=== PATIENT | female | born 1935 | race Caucasian/White ===

== ENCOUNTER → 2017-01-02 | Outpatient (CLI) | payer BC ==
[~2017-01-02] MED LIST: ASPEC81 PO; BNT20 PO; CALCTAB5 PO; FLAXSEED OIL; OMEG10007 PO; PRLSR20 PO
[2017-01-02 10:21] LABS: THYROID STIMULATING HORMONE 2.46 uIu/ml (0.300-4.500)
[2017-01-02 10:30] LABS: ESTIMATED AVERAGE GLUCOSE 126 mg/dl; HA1C FLAG Normal (Normal)
== END | disposition home or self-care (01) ==
LOC: C.LAB 09:08
PROVIDERS: ATTEND Internal Medicine
DX: E03.9 Hypothyroidism, unspecified (principal); R73.01 Impaired fasting glucose

== ENCOUNTER → 2017-01-15 | Outpatient (CLI) | payer BC ==
--- NOTE | 2017-01-15 15:37 | MAMMOGRAPHY REPORT ---
BILATERAL DIGITAL SCREENING MAMMOGRAM WITH CAD: 01/15/2017 CLINICAL HISTORY: Routine screening. TECHNIQUE: Bilateral CC, MLO and repeat right MLO views were obtained. Current study was also evalua bonilla with a Computer Aided Detection (CAD) system. COMPARISON: Comparison is made to exams dated: 01/12/2016 mammogram, 01/10/2015 mammogram, 01/06/2014 m ammogram, 07/13/2013 mammogram, 01/08/2013 mammogram, and 01/05/2013 mammogram - [facility]. BREAST COMPOSITION: There are scattered areas of fibroglandular density in both breasts. FINDINGS: There are minimal vascular calcifications in the breasts. Scattered and loosely grouped ro und and coarse calcifications are stable in each breast. No new suspicious mass, architectural disto rtion or cluster of microcalcifications is seen. IMPRESSION: ACR BI-RADS CATEGORY 1: NEGATIVE There is no mammographic evidence of malignancy. A 1 year screening mammogram is recommended. The pa tient will receive written notification of the results. Approximately 10% of breast cancers are not detected with mammography. A negative mammographic report should not delay biopsy if a clinically suggestive mass is present. Amrita Mayo M.D. ay/:01/15/2017 14:02:49 Sales And Service Advisor: Edgar Sanchez RT(R)(M), [facility] letter sent: Normal 1/2 BI-RADS Code: ACR BI-RADS Category 1: Negative
== END | disposition home or self-care (01) ==
LOC: C.MAMM 09:07
PROVIDERS: ATTEND Internal Medicine
DX: Z12.31 Encounter for screening mammogram for malignant neoplasm of breast (principal)

== ENCOUNTER → 2017-02-06 | Outpatient (CLI) | payer BC | END | disposition home or self-care (01) | LOC: C.MAMM 11:32 | PROVIDERS: ATTEND Internal Medicine | DX: M85.88 Other specified disorders of bone density and structure, other site (principal) ==

== ENCOUNTER → 2017-03-08 | Outpatient (CLI) | payer BC ==
--- NOTE | 2017-03-08 11:14 | DIAGNOSTIC IMAGING REPORT ---
THYROID ULTRASOUND HISTORY: E07.9 Thyroid disorder complaining of a "lump feeling" when sh COMPARISON: Thyroid ultrasound 12/26/2015. FINDINGS: Right lobe: 6.2 x 1.7 x 1.9 cm. The gland is slightly heterogeneous. No nodules identified. Left lobe: 5.7 x 2.0 x 1.8 cm. The gland is slightly heterogeneous. No nodules identified. Isthmus: 7 mm in thickness. No nodules. IMPRESSION: Mildly enlarged and heterogeneous thyroid gland. No nodules. This is similar to the prior study. Electronically signed by: Jarek Zepeda M.D. 03/08/2017 11:13 AM Dictated Date/Time: 03/08/2017 11:11 AM
== END | disposition home or self-care (01) ==
LOC: C.ULTR 10:47
PROVIDERS: ATTEND Physician Assistant
DX: E07.9 Disorder of thyroid, unspecified (principal)

== ENCOUNTER → 2017-08-02 | Outpatient (CLI) | payer BC ==
[2017-08-02 11:21] LABS: ALBUMIN 3.6 gm/dl (3.4-5.0); ALT/SGPT 26 U/L (12-78); AST/SGOT 21 U/L (15-37); BASO % 0.4 %; BASO ABS # 0.03 K/uL (0-0.2); BLOOD UREA NITROGEN 19 mg/dl (7-18); CARBON DIOXIDE 26 mmol/L (21-32); CREATININE 0.92 mg/dl (0.60-1.20); EOS % 1.2 %; EOS ABS # 0.09 K/uL (0-0.5); GLUCOSE 97 mg/dl (70-99); HEMATOCRIT 40.4 % (37-47); HEMOGLOBIN 13.4 g/dL (12.0-16.0); IG# 0.01 K/uL (0.00-0.02); LYMPH % 39.8 %; LYMPH ABS # 2.88 K/uL (1.2-3.4); MEAN CELL VOLUME 92.9 fL (80-100); MEAN CORPUSCULAR HEMOGLOBIN 30.8 pg (25-34); MEAN CORPUSCULAR HGB CONC 33.2 g/dl (32-36); MEAN PLATELET VOLUME 11.3 fL (7.4-10.4); MONO % 8.7 %; MONO ABS # 0.63 K/uL (0.11-0.59); NEUT % 49.8 %; PLATELET COUNT 236 K/uL (130-400); POTASSIUM 4.1 mmol/L (3.5-5.1); RED CELL DISTRIBUTION WIDTH CV 13.5 % (11.5-14.5); RED CELL DISTRIBUTION WIDTH SD 46.1 fL (36.4-46.3); SODIUM 136 mmol/L (136-145); WHITE BLOOD COUNT 7.24 K/uL (4.8-10.8)
[2017-08-02 11:32] LABS: ALKALINE PHOSPHATASE 98 U/L (45-117); CHOLESTEROL 205 mg/dl (0-200); LDL CHOLESTEROL CALCULATED 108 mg/dl; TOTAL PROTEIN 7.7 gm/dl (6.4-8.2)
[2017-08-02 12:21] LABS: HEMOGLOBIN A1C 5.9 % (4.5-5.6)
== END | disposition home or self-care (01) ==
LOC: C.LAB 09:18
PROVIDERS: ATTEND Internal Medicine
DX: R73.01 Impaired fasting glucose (principal); E03.9 Hypothyroidism, unspecified; M85.80 Other specified disorders of bone density and structure, unspecified site; E78.5 Hyperlipidemia, unspecified

== ENCOUNTER → 2017-09-02 | Outpatient (CLI) | payer BC ==
[~2017-09-02] MED LIST changes: +GADAVIST IV PRN
--- NOTE | 2017-09-02 15:35 | DIAGNOSTIC IMAGING REPORT ---
BRAIN COMBO CLINICAL HISTORY: D32.9 [id number] COMPARISON STUDY: 06/18/2016 TECHNIQUE: Utilizing a 1.5 Sabina magnet and dedicated coil, multiplanar, multiecho imaging of the brain was performed pre and postcontrast administration. IV administration of 8.5 mL of Gadavist contrast was uneventful. FINDINGS: Identical study compared to the prior examination of 06/18/2016. The postoperative changes within the right frontal region remain unchanged. Regions of encephalomalacia have not progressed. Mild chronic small vessel change is unaltered throughout both cerebral hemispheres. Enhancing mass over the left cerebral convexity as well as the enhancement as well as the additional nodule in the right temporal fossa are unchanged in terms of dimensions or configuration. There is no evidence for new or interval process. Ventricular system is midline. IMPRESSION: Identical exam compared to the prior study. The meningiomas as well as postoperative changes as discussed are unchanged. No new or interval process. The above report was generated using voice recognition software. It may contain grammatical, syntax or spelling errors. Electronically signed by: Gabino Navarro M.D. 09/02/2017 3:34 PM Dictated Date/Time: 09/02/2017 3:27 PM
== END | disposition home or self-care (01) ==
LOC: C.MRI 14:13
PROVIDERS: ATTEND Internal Medicine
DX: D32.9 Benign neoplasm of meninges, unspecified (principal)

== ENCOUNTER 2017-11-01 10:12 | Emergency (ER) | payer BC ==
[~2017-11-01] VITALS: Ht 160 cm; Wt 85.0 kg
[~2017-11-01 10:12] MED LIST changes: -GADAVIST IV PRN
[2017-11-01 10:14] VITALS: TEMP 36.7; Ht 160 cm; Wt 85.0 kg
[2017-11-01] MEDS ORDERED: ACETAMINOPHEN 500 MG TAB PO STA (10:44)
[2017-11-01 10:58] LABS: BASO % 0.2 %; BASO ABS # 0.02 K/uL (0-0.2); EOS % 1.9 %; EOS ABS # 0.16 K/uL (0-0.5); HEMATOCRIT 37.8 % (37-47); HEMOGLOBIN 12.6 g/dL (12.0-16.0); IG# 0.02 K/uL (0.00-0.02); LYMPH % 38.1 %; LYMPH ABS # 3.23 K/uL (1.2-3.4); MEAN CELL VOLUME 91.7 fL (80-100); MEAN CORPUSCULAR HEMOGLOBIN 30.6 pg (25-34); MEAN CORPUSCULAR HGB CONC 33.3 g/dl (32-36); MEAN PLATELET VOLUME 10.8 fL (7.4-10.4); MONO ABS # 0.68 K/uL (0.11-0.59); NEUT % 51.6 %; NEUT ABS # 4.36 K/uL (1.4-6.5); PLATELET COUNT 216 K/uL (130-400); RED CELL DISTRIBUTION WIDTH CV 13.7 % (11.5-14.5); RED CELL DISTRIBUTION WIDTH SD 45.7 fL (36.4-46.3); WHITE BLOOD COUNT 8.47 K/uL (4.8-10.8)
--- NOTE | 2017-11-01 10:59 | DIAGNOSTIC IMAGING REPORT ---
CHEST ONE VIEW PORTABLE CLINICAL HISTORY: Left-sided chest pain radiating into left shoulder. COMPARISON STUDY: Chest radiograph June 01, 2015. FINDINGS: Mild elevation/eventration of the right hemidiaphragm is unchanged. There is no pneumothorax or pleural effusion. There is no evidence for pulmonary edema. Cardiomediastinal silhouette is unremarkable. Appearance of the chest is unchanged. IMPRESSION: No acute cardiopulmonary findings. Electronically signed by: Karthik Lopez M.D. 11/01/2017 10:58 AM Dictated Date/Time: 11/01/2017 10:57 AM
[2017-11-01] MEDS ORDERED: [UNRECOGNIZED DRUG - OTHER] PO (11:06)
[2017-11-01] MEDS ORDERED: OMEP20CA9 PO (11:06)
[2017-11-01] MEDS ORDERED: LIFI5DRO OPB (11:09)
[2017-11-01] MEDS ORDERED: CHOL2000 PO (11:09)
[2017-11-01] MEDS ORDERED: ACET-1256 PO (11:10)
[2017-11-01] MEDS ORDERED: MULT60CA PO (11:16)
[2017-11-01 11:20] LABS: ALBUMIN 3.6 gm/dl (3.4-5.0); ALT/SGPT 30 U/L (12-78); AST/SGOT 25 U/L (15-37); BLOOD UREA NITROGEN 16 mg/dl (7-18); CALCIUM 9.5 mg/dl (8.5-10.1); CARBON DIOXIDE 27 mmol/L (21-32); CREATININE 0.89 mg/dl (0.60-1.20); GLUCOSE 110 mg/dl (70-99); LIPASE 264 U/L (73-393); POTASSIUM 4.1 mmol/L (3.5-5.1); SODIUM 140 mmol/L (136-145)
[2017-11-01 11:22] LABS: ALKALINE PHOSPHATASE 96 U/L (45-117); CKMB 2.7 ng/ml (0.5-3.6); TOTAL PROTEIN 7.4 gm/dl (6.4-8.2)
[2017-11-01 11:25] VITALS: O2SAT 95
[2017-11-01] MEDS ORDERED: LEVO50TA6 PO (11:25)
--- NOTE | 2017-11-01 11:37 | DIAGNOSTIC IMAGING REPORT ---
LEFT SHOULDER 3 VIEWS CLINICAL HISTORY: Left shoulder pain. FINDINGS: 3 views of the left shoulder are obtained. No prior studies are available for comparison at the time of dictation. The skeletal structures are osteopenic. No fracture or dislocation is identified. Productive degenerative change is seen at the acromioclavicular joint and along the acromion. The glenohumeral articulation is preserved. The overlying soft tissues are within normal limits. The visualized left upper lobe lung parenchyma appears clear. IMPRESSION: Osteopenia and mild degenerative change as above. No acute bony abnormality is identified. Electronically signed by: Sarath Zamarripa M.D. 11/01/2017 11:36 AM Dictated Date/Time: 11/01/2017 11:34 AM
--- NOTE | 2017-11-01 12:03 | EMERGENCY ROOM VISIT NOTE ---
History Report prepared by Maryibrenita: Waylon Jon Under the Supervision of: Dr. Elijah Jackson M.D. First contact with patient: 10:21 Chief Complaint: CHEST PAIN Stated Complaint: PAIN LEFT SIDE CHEST AND SHOULDER History of Present Illness The patient is a 81 year old female who presents to the Emergency Room with complaints of constant left-sided chest discomfort beginning last night (about eight hours ago). She also complains of pain in her left shoulder. Her pain woke her from sleep last night. The patient states that her shoulder pain is worse that her chest pain. Her pain is not worsened with exertion. She describes her discomfort as a "soreness". The patient notes that she was cleaning cupboards this week and may have strained a muscle. Source of History: patient Onset: Last night Position: chest (left) Quality: other ("soreness") Timing: constant Note: Positive: left shoulder pain. Review of Systems See HPI for pertinent positives & negatives. A total of 10 systems reviewed and were otherwise negative. Past Medical & Surgical Medical Problems: (1) GERD (gastroesophageal reflux disease) (2) IBS (irritable bowel syndrome) Family History No pertinent family history stated. Social History Smoking Status: Never Smoker Marital Status: Current/Historical Medications Scheduled Acetaminophen (Tylenol), 1,000 MG PO UD Aspirin Enteric Coated (Ecotrin Or Generic *), 81 MG PO HS Calcium (Caltrate), 600 MG PO HS Cholecalciferol (Vitamin D3), 1 CAP PO QAM Levothyroxine Sodium (Levothyroxine Sodium), 1 TAB PO QAM Lifitegrast (Xiidra), 1 DROP OPB BID Multiple Vitamins W/ Minerals (Preservision Areds 2), 1 CAP PO BID Omeprazole (Prilosec), 20 MG PO QAM [Eye Fish Oil], 1 TSP PO QAM Allergies Coded Allergies: Indomethacin (Verified Allergy, Unknown, UNKNOWN, 11/01/17) Pseudoephedrine (Verified Allergy, Unknown, UNKNOWN, 11/01/17) Physical Exam Vital Signs Date Time Temp Pulse Resp B/P (MAP) Pulse Ox O2 Delivery O2 Flow Rate FiO2 11/01/17 12:13 63 20 194/106 97 11/01/17 12:08 65 11/01/17 11:25 95 Room Air 11/01/17 11:25 74 16 208/101 95 Room Air 11/01/17 11:25 95 Room Air 11/01/17 10:14 36.7 92 20 207/91 97 Room Air Physical Exam GENERAL: Awake, alert, well-appearing, in no acute distress HENT: Normocephalic, atraumatic. Oropharynx unremarkable. EYES: Normal conjunctiva. Sclera non-icteric. NECK: Supple. No nuchal rigidity. FROM. No JVD. RESPIRATORY: Clear to auscultation. CARDIAC: Regular rate, normal rhythm. Extremities warm and well perfused. Pulses equal. ABDOMEN: Soft, non-distended. No tenderness to palpation. No rebound or guarding. No masses. RECTAL: Deferred. MUSCULOSKELETAL: Chest examination tenderness to the left breast plate. Reproducible left shoulder pain with ROM. The back is symmetrical on inspection without obvious abnormality. There is no CVA tenderness to palpation. No joint edema. LOWER EXTREMITIES: Calves are equal size bilaterally and non-tender. No edema. No discoloration. NEURO: Normal sensorium. No sensory or motor deficits noted. SKIN: No rash or jaundice noted. Medical Decision & Procedures ER Provider Diagnostic Interpretation: Radiology results as stated below per my review and radiologist interpretation: CHEST ONE VIEW PORTABLE FINDINGS: Mild elevation/eventration of the right hemidiaphragm is unchanged. There is no pneumothorax or pleural effusion. There is no evidence for pulmonary edema. Cardiomediastinal silhouette is unremarkable. Appearance of the chest is unchanged. IMPRESSION: No acute cardiopulmonary findings. Electronically signed by: Karthik Lopez M.D. 11/01/2017 10:58 AM LEFT SHOULDER 3 VIEWS FINDINGS: 3 views of the left shoulder are obtained. No prior studies are available for comparison at the time of dictation. The skeletal structures are osteopenic. No fracture or dislocation is identified. Productive degenerative change is seen at the acromioclavicular joint and along the acromion. The glenohumeral articulation is preserved. The overlying soft tissues are within normal limits. The visualized left upper lobe lung parenchyma appears clear. IMPRESSION: Osteopenia and mild degenerative change as above. No acute bony abnormality is identified. Electronically signed by: Sarath Zamarripa M.D. 11/01/2017 11:36 AM Laboratory Results 11/01/17 10:40 Red Blood Count 4.12, Mean Corpuscular Volume 91.7, Mean Corpuscular Hemoglobin 30.6, Mean Corpuscular Hemoglobin Concent 33.3, Mean Platelet Volume 10.8, Neutrophils (%) (Auto) 51.6, Lymphocytes (%) (Auto) 38.1, Monocytes (%) (Auto) 8.0, Eosinophils (%) (Auto) 1.9, Basophils (%) (Auto) 0.2, Neutrophils # (Auto) 4.36, Lymphocytes # (Auto) 3.23, Monocytes # (Auto) 0.68, Eosinophils # (Auto) 0.16, Basophils # (Auto) 0.02 11/01/17 10:40 Test 11/01/17 10:40 11/01/17 10:47 White Blood Count 8.47 K/uL (4.8-10.8) Red Blood Count 4.12 M/uL (4.2-5.4) Hemoglobin 12.6 g/dL (12.0-16.0) Hematocrit 37.8 % (37-47) Mean Corpuscular Volume 91.7 fL (80-100) Mean Corpuscular Hemoglobin 30.6 pg (25-34) Mean Corpuscular Hemoglobin Concent 33.3 g/dl (32-36) Platelet Count 216 K/uL (130-400) Mean Platelet Volume 10.8 fL (7.4-10.4) Neutrophils (%) (Auto) 51.6 % Lymphocytes (%) (Auto) 38.1 % Monocytes (%) (Auto) 8.0 % Eosinophils (%) (Auto) 1.9 % Basophils (%) (Auto) 0.2 % Neutrophils # (Auto) 4.36 K/uL (1.4-6.5) Lymphocytes # (Auto) 3.23 K/uL (1.2-3.4) Monocytes # (Auto) 0.68 K/uL (0.11-0.59) Eosinophils # (Auto) 0.16 K/uL (0-0.5) Basophils # (Auto) 0.02 K/uL (0-0.2) RDW Standard Deviation 45.7 fL (36.4-46.3) RDW Coefficient of Variation 13.7 % (11.5-14.5) Immature Granulocyte % (Auto) 0.2 % Immature Granulocyte # (Auto) 0.02 K/uL (0.00-0.02) D-Dimer 340 ug/L FEU (0-500) Anion Gap 4.0 mmol/L (3-11) Est Creatinine Clear Calc Drug Dose 52.1 ml/min Estimated GFR () 70.9 Estimated GFR (Non- 61.2 BUN/Creatinine Ratio 17.5 (10-20) Calcium Level 9.5 mg/dl (8.5-10.1) Total Bilirubin 0.4 mg/dl (0.2-1) Direct Bilirubin 0.1 mg/dl (0-0.2) Aspartate Amino Transf (AST/SGOT) 25 U/L (15-37) Alanine Aminotransferase (ALT/SGPT) 30 U/L (12-78) Alkaline Phosphatase 96 U/L (45-117) Total Creatine Kinase 250 U/L (26-192) Creatine Kinase MB 2.7 ng/ml (0.5-3.6) Creatine Kinase MB Ratio 1.1 (0-3.0) Troponin I < 0.015 ng/ml (0-0.045) Total Protein 7.4 gm/dl (6.4-8.2) Albumin 3.6 gm/dl (3.4-5.0) Lipase 264 U/L (73-393) Bedside Troponin I < 0.030 ng/ml (0-0.045) Labs reviewed by ED physician. Medications Administered Medications (Trade) Dose Ordered Sig/Reagan Route Start Time Stop Time Status Last Admin Dose Admin Acetaminophen (Tylenol Tab) 1,000 mg NOW STAT PO 11/01/17 10:44 11/01/17 10:45 DC 11/01/17 11:36 1,000 MG ECG Per My Interpretation Indication: chest pain Rate (beats per minute): 84 Rhythm: normal sinus Findings: ST depression (V3, V4), other (Normal axis) Comparison ECG Date: March 20, 2011 Change: no significant change ED Course 1027: Past medical records reviewed. The patient was evaluated in room A4B. A complete history and physical examination was performed. 1044: Ordered Tylenol Tab 1000 mg PO. 1155: Upon reexamination the patient is resting comfortably. I discussed results and treatment plan with the patient. She verbalizes agreement and understanding. The patient is ready for discharge. Medical Decision Differential diagnosis: Etiologies such as cardiac ischemia, aortic dissection, pulmonary embolism, pneumonia, pneumothorax, musculoskeletal, infections, pericarditis, myocarditis , esophageal rupture, gastrointestinal, as well as others were entertained. This is an 81-year-old female who presents emergency department complaining of left-sided chest pain. The pain is easily reproducible on exam and appears to be related to her shoulder. The patient relates she was cleaning yesterday and standing and using the shoulder a great deal. Based on this along with the fact that the pain is reproducible along with the fact the patient has a normal EKG as well as normal troponin I feel that the patient can be safely discharged home. I strongly recommended that the patient follow-up with orthopedics. Patient was in agreement with the treatment plan. Medication Reconcilliation Current Medication List: was personally reviewed by me Blood Pressure Screening Patient's blood pressure: Elevated blood pressure Blood pressure disposition: Referred to PCP Impression Primary Impression: Shoulder pain, left Scribe Attestation The scribe's documentation has been prepared under my direction and personally reviewed by me in its entirety. I confirm that the note above accurately reflects all work, treatment, procedures, and medical decision making performed by me. Departure Information Dispostion Home / Self-Care Referrals Jan Anthony M.D. (PCP) Forms Call Back Authorization, HOME CARE DOCUMENTATION FORM, IMPORTANT VISIT INFORMATION Patient Instructions ED Shoulder Pain RENAY, ALEXUS Lowe and [place], My [facility] Additional Instructions Follow up with Dr Plascencia's office You have been examined and treated today on an emergency basis only. This is not a substitute for, or an effort to provide, complete comprehensive medical care. It is impossible to recognize and treat all injuries or illnesses in a single emergency department visit. It is therefore important that you follow up closely with Dr Anthony. Call as soon as possible for an appointment. Thank you for your time and consideration. I look forward to speaking with you again soon. Please don't hesitate to call us if you have any questions. Problem Qualifiers Primary Impression: Shoulder pain, left Chronicity: acute Qualified Codes: M25.512 - Pain in left shoulder
[2017-11-01 12:13] VITALS: BP 194/106; PULSE 63; O2SAT 97
== END 2017-11-01 12:14 | disposition home or self-care (01) ==
LOC: C.EDB 10:15 → C.EDA 12:14
DX: M25.512 Pain in left shoulder (principal); K21.9 Gastro-esophageal reflux disease without esophagitis; K58.9 Irritable bowel syndrome, unspecified; Z79.82 Long term (current) use of aspirin; Z79.899 Other long term (current) drug therapy; Z88.8 Allergy status to other drugs, medicaments and biological substances

== ENCOUNTER → 2018-02-24 | Outpatient (CLI) | payer BC ==
[~2018-02-24] MED LIST changes: +ACET-1256 PO; -BNT20 PO; +CHOL2000 PO; -FLAXSEED OIL; +LEVO50TA6 PO; +LIFI5DRO OPB; +MULT60CA PO; -OMEG10007 PO; +OMEP20CA9 PO; -PRLSR20 PO; +[UNRECOGNIZED DRUG - OTHER] PO
--- NOTE | 2018-02-24 13:20 | Discharge Instructions ---
Discharge Instructions Procedure Procedure Date: Feb 24, 2018. Reason for visit: Right Mass. Discharge Discharge Date: Feb 24, 2018. Discharge Diagnosis: post 1:00 right breast ultrasound guided core biopsy Instructions Activity Recommendations: Additional Limitations (see below) Return to School/Work: no limitations Recommended Home Diet: No Limitations Provider Instructions: ACTIVITY RECOMMENDATIONS: * No lifting, pushing, pulling or exercising the affected side for three days. RETURN TO SCHOOL/WORK: * You may return to work/school after the procedure, but do not perform any strenuous activities for 24 to 48 hours. MEDICATIONS: * Tylenol (two 325 mg) every four to six hours if needed for mild pain (if not allergic to Tylenol). DIET: * Resume previous diet. SPECIAL CARE INSTRUCTIONS: * Keep biopsy site dry for 24 hours. May shower after 24 hours, but do not soak (bathe) incision. May remove Tegaderm (plastic patch) 24 hours after procedure * Leave the steri-strips on for one week. Allow the steri-strips to fall off by themselves. If not off after one week, you may remove them. You may place a Bandaid crosswise over the strips, if desired. * Apply ice 10 minutes on and 10 minutes off as needed. * Wear a bra at bedtime to sleep more comfortably for 2-3 days. * Your referring physician should have the results after approximately 5 to 7 business days. * Call for unusual bleeding, fever, drainage, etc or if you have any questions call [phone] during normal business hours or after hours call Dr Mayo, . FOLLOW UP VISIT: Follow-up with Referring Physician as scheduled. Allergies Coded Allergies: Indomethacin (Verified Allergy, Unknown, UNKNOWN, 11/01/17) Pseudoephedrine (Verified Allergy, Unknown, UNKNOWN, 11/01/17) Xander Capellan Recommendations: Call your doctor if: * Temperature above 101 degrees * Pain not relieved by pain medicine ordered * There is increased drainage or redness from any incision * You have any unanswered questions or concerns. Your Doctors Instructions noted above were prepared by provider Amrita Mayo. Patient Signature Section: Patient Instructions Signature Page Mica Boy Patient (or Guardian) Signature/Date: I have read and understand the instructions given to me by my caregivers. Caregiver/RN/Doctor Signature/Date: The above-named patient and/or guardian has received patient instructions on this date. + Original Patient Signature Page (only) stays with chart. Please make copy for patient.
--- NOTE | 2018-02-27 15:42 | MAMMOGRAPHY REPORT ---
THIS REPORT HAS BEEN AMENDED. ULTRASOUND GUIDED BIOPSY RIGHT BREAST: 02/24/2018 CLINICAL HISTORY: 82-year-old woman with recent biopsy-proven atypical ductal hyperplasia in a mucoce le-like lesion in the 12:00 right breast, 1 cm from the nipple. She presents for ultrasound-guided co re biopsy of a third visualized mass in the 1:00 right breast on prior diagnostic ultrasound. COMPARISON: Comparison is made to exams dated: 02/10/2018 ultrasound biopsy, 02/10/2018 mammogram, 12/21 mammogram, 01/15/2017 mammogram, 01/12/2016 mammogram, and 01/27/2018 ultrasound - [facility]. PATIENT CONSENT: The procedure, risks and benefits were discussed with the patient and informed conse nt was obtained both verbally and in writing. Specific risks to this procedure include: bleeding, in fection, puncture of adjacent structure, nontarget biopsy, sampling error, pain, metal allergy and me dication reaction. PROCEDURE DESCRIPTION: A time out was performed and the right breast was agreed as the site of biopsy . The skin was prepped and draped in the usual sterile fashion. The predominantly anechoic cystic-nadira earing mass in the 1:00 right breast was chosen as the target for biopsy. Subcutaneous and intraparen chymal 1% buffered lidocaine, with and without epinephrine, was administered as local anesthesia. A s kin incision was made. Through the incision, to samples were taken with a 14 gauge Achieve biopsy de vice. The mass was no longer identified after the second core biopsy sample and therefore a wing-sha ped metallic marker was placed at the biopsy site. Hemostasis was achieved after manual compression. The patient tolerated the procedure well and there was no immediate complication. The samples were s ent to the pathology department in an appropriately labeled container. Postprocedure right CC and MLO tomosynthesis images were obtained. A new wing-shaped biopsy marker c lip is identified in the 1:00 middle one third of the right breast. This third biopsy marker clip al igns with the initial focal asymmetry in question, detected on the screening mammogram from 01/16/2018 . There is a small 1 cm hematoma at the biopsy site. Ribbon and lock-shaped biopsy clips are stable in the 12:00 axis. The lock-shaped clip denotes the site of biopsy proven atypia. IMPRESSION: ULTRASOUND GUIDED BIOPSY Status post ultrasound-guided core biopsy of an anechoic cystic-appearing mass in the 1:00 left breas t. A wing-shaped biopsy marker clip was placed at the site and this clip aligns with the initial kemar mographic mass in question detected on the 01/16/2018 screening mammogram. The patient will receive notification of the biopsy results from her referring physician. Amrita Mayo M.D. ay/:02/24/2018 14:29:02 Attending Technologist: DEVANTE Gomez)(Jessica), [facility] Professional: Amrita Mayo, [facility] AMENDMENT: 02/26/2018 Amrita Mayo M.D. 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 The pathology results are concordant with the imaging appearance and this mass aligned with the mass in question in which t he patient was initially called back from screening mammography. This lesion is denoted by a wing-sh aped biopsy marker clip. It is controversial as to whether all intraductal papillomas without atypical features, such as in th is case, require excisional biopsy. However it should be noted that biopsy of the right 12:00 mass, 1 cm from the nipple yielded atypical ductal hyperplasia. Mucocele like lesion. Since surgical exci pauline is recommended for that lesion, which is denoted by a lock or coiled biopsy marker clip, could c onsider excising both the mucocele-like lesion with atypia and papilloma at the same time (both the w ing and lock-shaped clips).
--- NOTE | 2018-02-27 15:42 | MAMMOGRAPHY REPORT ---
UNILATERAL RIGHT DIGITAL DIAGNOSTIC MAMMOGRAM TOMOSYNTHESIS: 02/24/2018 CLINICAL HISTORY: Status post ultrasound-guided core biopsy of an anechoic cystic-appearing mass in t he 1:00 right breast, thought to correspond with the initial screening mammogram finding. The mass bi opsied in the 12:00 right breast, 1 cm from the nipple yielded atypia and a possible mucinous lesion. Please refer to the report from right breast ultrasound-guided core biopsy performed at the same time for full detail. IMPRESSION: POST PROCEDURE IMAGING FOR MARKER PLACEMENT Please refer to the report from right breast ultrasound-guided core biopsy performed at the same time for full detail. Some breast cancers are not detected with mammography. A negative mammographic report should not yessi y biopsy if a clinically suggestive mass is present. Amrita Mayo M.D. ay/:02/24/2018 13:31:03 [employer] Underwriter: DEVANTE Gomez)(Jessica), [facility] BI-RADS Code: Post Procedure Imaging For Marker Placement
== END | disposition home or self-care (01) ==
LOC: C.MAMM 12:34
PROVIDERS: ATTEND Internal Medicine
DX: N60.91 Unspecified benign mammary dysplasia of right breast (principal); D24.1 Benign neoplasm of right breast

== ENCOUNTER → 2018-03-10 | Outpatient (CLI) | payer BC ==
[~2018-03-10] MED LIST changes: +ASPI-232 PO; +CALC500C70 PO; +DVN/160 PO; +FLAX10007 PO; +HYDR-5688 PO; +OMEG10007 PO
[2018-03-10 10:34] LABS: BASO % 0.4 %; BASO ABS # 0.03 K/uL (0-0.2); EOS % 1.7 %; EOS ABS # 0.14 K/uL (0-0.5); HEMATOCRIT 40.6 % (37-47); HEMOGLOBIN 13.1 g/dL (12.0-16.0); IG# 0.01 K/uL (0.00-0.02); LYMPH % 32.4 %; LYMPH ABS # 2.64 K/uL (1.2-3.4); MEAN CELL VOLUME 94.4 fL (80-100); MEAN CORPUSCULAR HEMOGLOBIN 30.5 pg (25-34); MEAN CORPUSCULAR HGB CONC 32.3 g/dl (32-36); MEAN PLATELET VOLUME 11.1 fL (7.4-10.4); MONO % 10.8 %; MONO ABS # 0.88 K/uL (0.11-0.59); NEUT % 54.6 %; NEUT ABS # 4.44 K/uL (1.4-6.5); PLATELET COUNT 250 K/uL (130-400); RED CELL DISTRIBUTION WIDTH CV 13.8 % (11.5-14.5); RED CELL DISTRIBUTION WIDTH SD 47.4 fL (36.4-46.3); WHITE BLOOD COUNT 8.14 K/uL (4.8-10.8)
[2018-03-10 11:12] LABS: BLOOD UREA NITROGEN 16 mg/dl (7-18); CALCIUM 10.2 mg/dl (8.5-10.1); CARBON DIOXIDE 28 mmol/L (21-32); CREATININE 0.93 mg/dl (0.60-1.20); GLUCOSE 94 mg/dl (70-99); GLUCOSE,FASTING 94 mg/dl (70-99); POTASSIUM 4.3 mmol/L (3.5-5.1); SODIUM 138 mmol/L (136-145)
[2018-03-10 11:31] LABS: HEMOGLOBIN A1C 5.9 % (4.5-5.6)
== END | disposition home or self-care (01) ==
LOC: C.LAB 09:20
PROVIDERS: ATTEND Surgery
DX: Z01.818 Encounter for other preprocedural examination (principal); N60.99 Unspecified benign mammary dysplasia of unspecified breast; D24.9 Benign neoplasm of unspecified breast; R73.01 Impaired fasting glucose; E03.9 Hypothyroidism, unspecified

== ENCOUNTER 2022-03-16 07:21 | Observation (INO) ==
[2022-03-16] MEDS ORDERED: SODIUM CHLORIDE 0.9% 500 ML IV SCH (08:45)
--- NOTE | 2022-03-16 08:48 | Emergency Department Note ---
History of Present Illness General Chief complaint: Weakness Stated complaint: weakness Time Seen by Provider: 03/16/22 08:29 Source: patient and family ( and daughter who are at the bedside) Mode of arrival: ambulatory Limitations: no limitations History of Present Illness This patient is an 86-year-old female who comes in after falling at 5:00 this morning she says "I just went down. She says she just felt weak all over. Was nonfocal but mostly in her legs bilaterally. She said she got up to go to the bathroom. She adamantly denies there was no syncope or symptoms prior to falling just feeling weak. She denies any injury she did not hit her head there is no headache or head trauma. No neck pain she denies that she has pain anywhere. No chest pain in any point or palpitations. no shortness of breath or pleurisy. No recent illness cough or fever or chills. No nausea vomiting or diarrhea. No blood or melena in her stool. No sick contacts. No urinary symptoms specifically no dysuria or hematuria. No difficulty speaking or swallowing. No change in vision acutely. She says her legs feel tingly in her feet but she gets that from time to time. She tells me she does have a history of parathyroid disease and was taken off of medications for this recently. She also has a history of meningiomas that been operated on in the past. Home Medications Medication Instructions Recorded Confirmed Type flaxseed oil See Rx Instructions miscellaneous 12/20/18 01/02/22 Rx ONCE #1 btl aspirin 81 mg tablet 81 mg PO DAILY 04/30/19 02/07/22 History aflibercept 2 mg/0.05 mL intravitreal 05/04/19 02/07/22 History intravitreal solution for injection (Eylea) [place] Three Fish Oil Liquid 2,668 mg PO DAILY 04/06/20 02/07/22 History vit 1 cap PO BID 04/06/20 02/07/22 History C,E,zinc,Ko-wuhrf-4-lutein-zeaxanthin 250 mg-2.5 mg-0.5 mg capsule amlodipine 5 mg tablet 5 mg PO DAILY #90 tabs 04/25/21 02/07/22 Rx omeprazole 20 mg capsule,delayed 20 mg PO DAILY #90 caps 07/03/21 02/07/22 Rx release lisinopril 40 mg tablet 40 mg PO DAILY #90 tabs 09/01/21 02/07/22 Rx levothyroxine 75 mcg tablet 75 mcg PO DAILY #90 tabs 12/29/21 02/07/22 Rx [place] Eye Drops ophthalmic (eye) 01/02/22 02/07/22 History eye lubricant combination no.1 2 drp ophthalmic (eye) 01/02/22 02/07/22 History %-0.9 %-1.8 % drops cholecalciferol (vitamin D3) 50 50 mcg PO DAILY 02/07/22 02/07/22 History mcg (2,000 unit) capsule cinacalcet 30 mg tablet 30 mg PO DAILY #90 tabs 02/07/22 02/07/22 Rx tumeric PO 02/07/22 History vit C 250 mg-E 90 mg-zinc 40 1 tab PO BID 02/07/22 02/07/22 History mg-copper 1 ko-vmfmqn-slpxok chew tablet (PreserVision AREDS-2) Allergies Allergy/AdvReac Type Severity Reaction Status Date / Time indomethacin Allergy Unknown "HEAD FELT Verified 02/07/22 11:12 FUNNY" pseudoephedrine Allergy Unknown "HEAD FELT Verified 02/07/22 11:12 FUNNY" Past Med/Surg History Medical History Gastroesophageal reflux disease Hyperlipidemia Hypertension Hypothyroidism Impaired fasting glucose Macular degeneration Mass of right breast Meningioma Osteopenia Primary hyperparathyroidism Surgical History History of brain surgery S/P breast biopsy, right S/P cataract surgery S/P cholecystectomy S/P hysterectomy S/P tonsillectomy and adenoidectomy Family History Father Diabetes Brother Diabetes Mother Breast cancer Sister Breast cancer Denies family history of Ovarian cancer Prostate cancer Myocardial infarction Colorectal cancer Social History Smoking Status: Never smoker Second Hand Exposure: No; Hx Alcohol Use: No Hx Substance Use: No Preferred Language: Swazi Communication Ability: Effective Visual Impairment: No Limitations Hearing Ability: Use of Hearing Aid Hop Weigher Required: No marital status: Current Living Situation: Spouse current occupational status: retired current occupation: used to work as meat stocker at [employer] Feels Safe at Home: Yes Childhood Exposure to Second-Hand Smoke: No caffeine: Yes during the past year weight has: remained stable Dental Care, Regularly: Yes Physical Activity Frequency: Daily Seatbelt Use: always Sunscreen Use: Yes Assistive Devices: Denture - Upper, Denture - Lower, Glasses and Hearing Aid - Bilateral Review of Systems A total of 10 systems reviewed and were otherwise negative Physical Exam Vital Signs Vital Signs - 24 hr 03/16/22 07:30 03/16/22 07:27 03/16/22 07:27 Temperature 36.6 C Temperature Source Temporal Artery Scan Pulse Rate - Lying Pulse Rate - Sitting Pulse Rate - Standing Pulse Rate 74 Pulse Rate [Apical] 70 Pulse Rhythm Regular Pulse Strength Normal Respiratory Rate 20 16 Respiratory Effort / Characteristics Non-Labored Spontaneous Respiratory Depth Normal Respiratory Pattern Regular Blood Pressure - Lying Blood Pressure - Sitting Blood Pressure- Standing Blood Pressure 199/80 H Blood Pressure [Left Arm] 199/80 H Blood Pressure Mean 119 Blood Pressure Mean [Left Arm] 119 Blood Pressure Position Sitting Pulse Oximetry 98 95 Oxygen Delivery Method Room Air Room Air Sepsis Recent Fever Within 48 Hours No Sepsis New/Unexplained Change in Mental Status No Sepsis Action Taken by Nursing No Action Required 03/16/22 08:40 03/16/22 09:27 03/16/22 11:32 Temperature Temperature Source Pulse Rate - Lying 67 Pulse Rate - Sitting 80 Pulse Rate - Standing 90 Pulse Rate Pulse Rate [Apical] 73 Pulse Rhythm Pulse Strength Respiratory Rate 16 Respiratory Effort / Characteristics Respiratory Depth Respiratory Pattern Blood Pressure - Lying 176/87 H Blood Pressure - Sitting 155/83 H Blood Pressure- Standing 163/81 H Blood Pressure Blood Pressure [Left Arm] 175/89 H Blood Pressure Mean Blood Pressure Mean [Left Arm] 117 Blood Pressure Position Pulse Oximetry 95 99 Oxygen Delivery Method Room Air Sepsis Recent Fever Within 48 Hours Sepsis New/Unexplained Change in Mental Status Sepsis Action Taken by Nursing General: Well developed well nourished older female who appears in no acute distress, breathing comfortably on room air. Normal speech HEENT: Normal cephalic atraumatic. Pupils are equal round and reactive to light. Extraocular movements are intact. Oropharynx is pink with moist mucous membranes. No swelling of the mouth lips or tongue. Neck: Supple with a midline trachea. No meningeal signs or stiffness, no JVD or bruits. No Stridor. Chest: Clear to auscultation bilaterally. No wheezes or rhonchi. No increased work of breathing. Heart: Regular rate and rhythm without murmurs or gallops. Abdomen: Soft nontender, nondistended without rebound guarding or rigidity. Extremities: No cyanosis clubbing or edema. No calf tenderness or assymetry Spine/Back. Non tender to palpation. No CVA tenderness Skin: Good turgor without rashes. Neurologic exam: Cranial nerves two through 12 are intact. Motor and sensation are intact and symmetrical throughout. Finger to ose is intact. No pronator drift. Course Administered Medications Discontinued Medications Sodium Chloride (Nss) 500 mls @ 999 mls/hr IV .Q31M RAVIN Stop: 03/16/22 09:15 Last Infusion: 03/16/22 10:05 Dose: 0 mls/hr Documented By: Admin: 03/16/22 08:53 Dose: 999 mls/hr Documented By: LAQUITA Medical Decision Making Differential Diagnosis Weakness, central neurologic process, arrhythmia, acute coronary syndrome, anemia, infection, UTI, electrolyte or metabolic abnormality Medical Records Attestation: I reviewed the patient's medical records. Home Medications Current Medication List: was personally reviewed by me Laboratory Data Attestation: I reviewed the patient's lab results. Result diagrams: 03/16/22 07:46 03/16/22 07:46 Lab Results 03/16/22 03/16/22 03/16/22 Range/Units 07:46 07:46 07:46 WBC 7.34 (4.8-10.8) K/ul RBC 4.27 (3.93-5.22) M/uL Hgb 12.7 (12.0-16.0) g/dl Hct 39.0 (34.1-44.9) % MCV 91.3 (80.0-100.0) fL MCH 29.7 (25.0-34.0) pg MCHC 32.6 (32.0-36.0) g/dL RDW Std Deviation 46.0 (36.4-46.3) fL RDW Coeff of [place] 13.6 (11.5-14.5) % Plt Count 247 (130-400) K/uL MPV 11.0 (9.4-12.3) fL Immature Gran % (Auto) 0.3 % Neut % (Auto) 56.4 % Lymph % (Auto) 31.9 % [place] % (Auto) 9.1 % Eos % (Auto) 1.8 % Baso % (Auto) 0.5 % Neut # (Auto) 4.14 (1.4-6.5) K/uL Lymph # (Auto) 2.34 (1.2-3.4) K/uL [place] # (Auto) 0.67 (0.24-0.82) K/uL Eos # (Auto) 0.13 (0-0.50) K/uL Baso # (Auto) 0.04 (0-0.2) K/uL Immature Gran # (Auto) 0.02 (0.00-0.02) K/uL Sodium 138 (136-145) mmol/L Potassium 4.2 (3.5-5.1) mmol/L Chloride 107 (98-107) mmol/L Carbon Dioxide 24 (21-32) mmol/L Anion Gap 7 (3-11) BUN 15 (6-23) mg/dl Creatinine 0.88 (0.6-1.2) mg/dl Est Cr Clr Drug Dosing Not Reportable Est GFR ( Amer) 69.4 ml/min Est GFR (Non-Af Amer) 59.9 ml/min BUN/Creatinine Ratio 17.0 (10-20) Glucose 120 H (70-99(Fasting)) mg/dl Calcium 9.9 (8.5-10.1) mg/dl Magnesium 2.1 (1.7-2.4) mg/dl Total Bilirubin 0.6 (0.2-1.0) mg/dl AST 18 (13-39) U/L ALT 13 (7-52) U/L Alkaline Phosphatase 100 (34-104) U/L Troponin I High Sens 8.5 (0-14) pg/ml Total Protein 7.2 (6.0-8.3) gm/dl Albumin 4.0 (3.4-5.0) gm/dl Globulin 3.2 (2.5-4.0) gm/dl Albumin/Globulin Ratio 1.3 (0.9-2) TSH 1.493 (0.300-4.500) uIu/ml Urine Color Urine Appearance (Clear) Urine pH (4.5-7.5) Ur Specific [place] (1.000-1.030) Urine Protein (Negative) Urine Glucose (UA) (Negative) Urine Ketones (Negative) Urine Blood (Negative) Urine Nitrite (Negative) Urine Bilirubin (Negative) Urine Urobilinogen (Negative) Ur Leukocyte Esterase (Negative) Urine WBC (Auto) (0-5) /hpf Urine RBC (Auto) (0-4) /hpf U Hyaline Cast (Auto) (0-5) /lpf U Epithel Cells (Auto) (0-5) /lpf Urine Bacteria (Auto) (Negative) SARS-CoV-2, RNA, NAAT (NEGATIVE) 03/16/22 03/16/22 Range/Units 08:46 08:55 WBC (4.8-10.8) K/ul RBC (3.93-5.22) M/uL Hgb (12.0-16.0) g/dl Hct (34.1-44.9) % MCV (80.0-100.0) fL MCH (25.0-34.0) pg MCHC (32.0-36.0) g/dL RDW Std Deviation (36.4-46.3) fL RDW Coeff of [place] (11.5-14.5) % Plt Count (130-400) K/uL MPV (9.4-12.3) fL Immature Gran % (Auto) % Neut % (Auto) % Lymph % (Auto) % [place] % (Auto) % Eos % (Auto) % Baso % (Auto) % Neut # (Auto) (1.4-6.5) K/uL Lymph # (Auto) (1.2-3.4) K/uL [place] # (Auto) (0.24-0.82) K/uL Eos # (Auto) (0-0.50) K/uL Baso # (Auto) (0-0.2) K/uL Immature Gran # (Auto) (0.00-0.02) K/uL Sodium (136-145) mmol/L Potassium (3.5-5.1) mmol/L Chloride (98-107) mmol/L Carbon Dioxide (21-32) mmol/L Anion Gap (3-11) BUN (6-23) mg/dl Creatinine (0.6-1.2) mg/dl Est Cr Clr Drug Dosing Est GFR ( Amer) ml/min Est GFR (Non-Af Amer) ml/min BUN/Creatinine Ratio (10-20) Glucose (70-99(Fasting)) mg/dl Calcium (8.5-10.1) mg/dl Magnesium (1.7-2.4) mg/dl Total Bilirubin (0.2-1.0) mg/dl AST (13-39) U/L ALT (7-52) U/L Alkaline Phosphatase (34-104) U/L Troponin I High Sens (0-14) pg/ml Total Protein (6.0-8.3) gm/dl Albumin (3.4-5.0) gm/dl Globulin (2.5-4.0) gm/dl Albumin/Globulin Ratio (0.9-2) TSH (0.300-4.500) uIu/ml Urine Color Yellow Urine Appearance Clear (Clear) Urine pH 8.0 H (4.5-7.5) Ur Specific [place] 1.005 (1.000-1.030) Urine Protein Negative (Negative) Urine Glucose (UA) Negative (Negative) Urine Ketones Negative (Negative) Urine Blood Negative (Negative) Urine Nitrite Negative (Negative) Urine Bilirubin Negative (Negative) Urine Urobilinogen Negative (Negative) Ur Leukocyte Esterase 1+ H (Negative) Urine WBC (Auto) 1-5 (0-5) /hpf Urine RBC (Auto) 0-4 (0-4) /hpf U Hyaline Cast (Auto) 0 (0-5) /lpf U Epithel Cells (Auto) 10-20 H (0-5) /lpf Urine Bacteria (Auto) Negative (Negative) SARS-CoV-2, RNA, NAAT NEGATIVE (NEGATIVE) Imaging Data Attestation: I personally reviewed and interpreted this imaging study as follows: My Impression: Chest x-rayno infiltrate, failure, pneumothorax seen Radiologist's Impression: Chest X-Ray 03/16/22 08:40 XR chest 1V portable HISTORY: Chest 11/01/2017. COMPARISON: None. FINDINGS: The cardiac silhouette remains mildly enlarged. Mild bibasilar interstitial thickening remains stable. This is likely chronic. No new focal lung consolidations to suggest pneumonia. No evidence for pulmonary edema. Stable mild elevation the right hemidiaphragm. Prior cholecystectomy. Calcifications within the aortic knob. No pneumothorax. No pleural effusions. IMPRESSION: No significant change compared to the prior study. No acute process. ACT 112: Negative or not required by law. Electronically signed by: Jarek Zepeda M.D. 03/16/2022 9:[address] 03/16/22 08:[address] DOSE: 638.56 mGycm HISTORY: weakness, hx of menigoma TECHNIQUE: Multiaxial CT images of the head were performed without the use of intravenous contrast. Automated exposure control was utilized for this study. A dose lowering technique was utilized adhering to the principles of ALARA. Comparison: Head CT 05/20/2009. Brain MRI 10/31/2018. Findings: Mild mucosal thickening within the left maxillary sinus. The remaining paranasal sinuses and mastoid air cells are clear. No acute calvarial fractures identified. Stable 2 cm left high convexity meningioma. Prior right frontal craniotomy with underlying encephalomalacia. This is also unchanged. There is no hematoma, midline shift, acute infarct. The ventricles are normal in size. Impression: 1. No acute intracranial abnormality. 2. Stable postoperative changes/encephalomalacia again noted within the right frontal lobe. 3. Stable 2 cm meningioma within the left high convexity. ACT 112: Negative or not required by law. Electronically signed by: Jarek Zepeda M.D. 03/16/2022 9:57 AM ECG Data Attestation: I personally reviewed and interpreted this ECG as follows: Indication: + weakness Rate (beats per minute): 61 Rhythm: + normal sinus ECG Intervals/blocks: + Normal QRS, + Normal QT and + Normal CA ECG [place]: + Normal ECG ST segments: + Normal ST segments ECG Findings: + LVH Comparison ECG Date: from (11/01/17) Change: the following changes noted (Nonspecific ST abnormalities are now resolved) MDM Narrative This patient comes in as described above. She felt weak diffusely and fell there were no injury she feels better now she has slight tingling in her feet which she says she gets from time to time. She has a normal neurologic exam. She has stable vital signs. IV access was established was hydrated with a 500 cc normal IV saline bolus and extensive work-up was done EKG. does not suggest acute coronary syndrome or arrhythmia. She was placed on a laboratory monitor. Given her history of meningioma, I did do a CT of her head as well. Chest x-ray was also obtained as well as urinalysis. She was reassessed frequently. No fe fabiola or white count to suggest infection. No significant anemia. No significant electrolyte or metabolic abnormalities. EKG was unremarkable and also negative. Chest x-ray does not show congestive heart failure pneumonia or pneumothorax. Urinalysis does not suggest a UTI. CAT scan of the head was unremarkable. I did orthostatics and her blood pressure and pulse did not tilt however she able ambulate. She says her legs just felt like they are giving out bilaterally. She has no back pain no change in bowel bladder function. Nothing to stress a central neurologic process. I talked to family at length and she is not safe to go home at this point. I had case management talk to her about rehab but she is not interested but is willing to stay in the hospital. I consulted the [facility] hospitalist to see her in the ER for these measures. Continuous cardiac monitoring: Orders placed in EMR for continuous cardiac monitoring. Upon my interpretation, she was noted to be in normal sinus rhythm at 79. Impression & Plan Weakness, Fall, Ambulatory dysfunction, Lab test negative for COVID-19 virus Discharge Plan Visit Data Chief Complaint: Weakness Stated Complaint: weakness ED Provider: Dav Borrero Discharge Problem: Weakness, Fall, Ambulatory dysfunction, Lab test negative for COVID-19 virus Forms Stand Alone Forms: [facility] Prescriptions Prescriptions: No Action amlodipine 5 mg tablet 5 mg PO DAILY Qty: 90 3RF omeprazole 20 mg capsule,delayed release(DR/EC) 20 mg PO DAILY Qty: 90 3RF lisinopril 40 mg tablet 40 mg PO DAILY Qty: 90 3RF levothyroxine 75 mcg tablet 75 mcg PO DAILY Qty: 90 3RF vit C,E,Zn,Vz-iuhnw3-udp-zeax 250-2.5-0.5 mg capsule 1 cap PO BID [place] Three Fish Oil Liquid 2,668 mg PO DAILY eye lubricant combination no.1 2-0.9-1.8 % drops ophthalmic (eye) [place] Eye Drops ophthalmic (eye) cholecalciferol (vitamin D3) 50 mcg (2,000 unit) capsule 50 mcg PO DAILY PreserVision AREDS-2 250-90-40-1 mg tablet,chewable 1 tab PO BID tumeric PO cinacalcet 30 mg tablet 30 mg PO DAILY Qty: 90 3RF Eylea 2 mg/0.05 mL solution INT VIT flaxseed oil oil See Rx Instructions MS ONCE Qty: 1 0RF Dose Instruction: 1200mg MS ONCE; Rx Instructions: 1200mg MS ONCE; aspirin 81 mg tablet 81 mg PO DAILY Referrals Referrals: Jan Anthony MD [Primary Care Provider] -
[2022-03-16 09:06] LABS: Basophils # (auto) 0.04 K/uL (0-0.2); Basophils % (auto) 0.5 %; Eosinophils # (auto) 0.13 K/uL (0-0.50); Eosinophils % (auto) 1.8 %; Hemoglobin 12.7 g/dl (12.0-16.0); Immature Granulocytes # (auto) 0.02 K/uL (0.00-0.02); Immature Granulocytes % (auto) 0.3 %; Lymphocytes # (auto) 2.34 K/uL (1.2-3.4); Lymphocytes % (auto) 31.9 %; Mean Corpuscular Hemoglobin 29.7 pg (25.0-34.0); Mean Corpuscular Hgb Conc 32.6 g/dL (32.0-36.0); Mean Corpuscular Volume 91.3 fL (80.0-100.0); Monocytes # (auto) 0.67 K/uL (0.24-0.82); Monocytes % (auto) 9.1 %; Neutrophils # (auto) 4.14 K/uL (1.4-6.5); Neutrophils % (auto) 56.4 %; Platelet Count 247 K/uL (130-400); RDW Coefficient of Variation 13.6 % (11.5-14.5); Red Blood Count 4.27 M/uL (3.93-5.22); White Blood Count 7.34 K/ul (4.8-10.8)
[2022-03-16 09:16] LABS: Appearance Urine Clear (Clear); Bacteria Urine Automated Negative (Negative); Bilirubin Urine Negative (Negative); Blood Urine Negative (Negative); Cast Urine Automated 0 /lpf (0-5); Color Urine Yellow; Glucose Urine UA Negative (Negative); Ketones Urine Negative (Negative); Leukocyte Esterase Urine 1+ (Negative); Nitrite Urine Negative (Negative); Protein Urine Negative (Negative); RBC Urine Automated 0-4 /hpf (0-4); Specific Gravity Urine 1.005 (1.000-1.030); Urobilinogen Urine Negative (Negative)
[2022-03-16 09:20] LABS: Alanine Aminotransferase 13 U/L (7-52); Albumin Globulin Ratio 1.3 (0.9-2); Alkaline Phosphatase 100 U/L (34-104); Anion Gap 7 (3-11); Aspartate Aminotransferase 18 U/L (13-39); Bilirubin,Total 0.6 mg/dl (0.2-1.0); Blood Urea Nitrogen 15 mg/dl (6-23); Calcium 9.9 mg/dl (8.5-10.1); Carbon Dioxide 24 mmol/L (21-32); Chloride 107 mmol/L (98-107); Est GFR (African American) 69.4 ml/min; Est GFR (Non-African American) 59.9 ml/min; Globulin 3.2 gm/dl (2.5-4.0); Glucose 120 mg/dl (70-99(Fasting)); Magnesium 2.1 mg/dl (1.7-2.4); Potassium 4.2 mmol/L (3.5-5.1); Sodium 138 mmol/L (136-145); Total Protein 7.2 gm/dl (6.0-8.3)
[2022-03-16 09:23] LABS: Troponin I High Sensitivity 8.5 pg/ml (0-14)
--- NOTE | 2022-03-16 09:32 | XRay Report ---
XR chest 1V portable HISTORY: Chest 11/01/2017. COMPARISON: None. FINDINGS: The cardiac silhouette remains mildly enlarged. Mild bibasilar interstitial thickening shanna ins stable. This is likely chronic. No new focal lung consolidations to suggest pneumonia. No evidenc e for pulmonary edema. Stable mild elevation the right hemidiaphragm. Prior cholecystectomy. Calcific ations within the aortic knob. No pneumothorax. No pleural effusions. IMPRESSION: No significant change compared to the prior study. No acute process. ACT 112: Negative or not required by law. Electronically signed by: Jarek Zepeda M.D. 03/16/2022 9:30 AM
--- NOTE | 2022-03-16 09:59 | CT Scan Report ---
HEAD CT NONCONTRAST CT DOSE: 638.56 mGycm HISTORY: weakness, hx of menigoma TECHNIQUE: Multiaxial CT images of the head were performed without the use of intravenous contrast. A utomated exposure control was utilized for this study. A dose lowering technique was utilized adheri ng to the principles of ALARA. Comparison: Head CT 05/20/2009. Brain MRI 10/31/2018. Findings: Mild mucosal thickening within the left maxillary sinus. The remaining paranasal sinuses an d mastoid air cells are clear. No acute calvarial fractures identified. Stable 2 cm left high convexi ty meningioma. Prior right frontal craniotomy with underlying encephalomalacia. This is also unchange d. There is no hematoma, midline shift, acute infarct. The ventricles are normal in size. Impression: 1. No acute intracranial abnormality. 2. Stable postoperative changes/encephalomalacia again noted within the right frontal lobe. 3. Stable 2 cm meningioma within the left high convexity. ACT 112: Negative or not required by law. Electronically signed by: Jarek Zepeda M.D. 03/16/2022 9:57 AM
--- NOTE | 2022-03-16 11:20 | Electrocardiogram Report ---
Test Reason : Blood Pressure : / mmHG Vent. Rate : 061 BPM Atrial Rate : 061 BPM P-R Int : 172 ms QRS Dur : 074 ms QT Int : 426 ms P-R-T Axes : 050 -01 014 degrees QTc Int : 428 ms Normal sinus rhythm Moderate voltage criteria for LVH, may be normal variant Diffuse Minor Nonspecific ST abnormality Borderline ECG When compared with ECG of 01-NOV-2017 10:21, No significant change was found Confirmed by Ravindra Hickey ([id number]) on 03/16/2022 11:19:38 AM Referred By: SELF Confirmed By:Ravindra Hickey
--- NOTE | 2022-03-16 14:11 | History & Physical Report ---
Date of Service March 16, 2022 Assessment & Plan (1) Fall: Plan: Reports legs just get "weird" and weak. No presyncopal prodrome such as lightheadedness, dizziness, chest pain, palpitations, shortness of breath. Orthostatics in the ER negative: 175/85 -> 155/85 -> 165/80. - Weakness seems fairly vague. * Check B12 -> Last was 461 in 2019 * Check A1c -> Last was 6.1% in 12/2021 so seems unlikely to be the culprit. * PT/OT * Would recommend repeating outpatient EMG; do not see much benefit from consulting neurology at this time for the hx of neuropathy. - Patient very resistant to rehab, so unclear what her disposition will be. (2) Hypertension: Plan: BP in the ER is 175/90. - Continue home meds: amlodipine and lisinopril (3) Primary hyperparathyroidism: Plan: Follows with Dr. Choudhury. Ca on admission was 9.9. - Continue cinacalcet (4) Polyneuropathy: Plan: Per PCP note from 06/27/2021: "history of left leg radicular symptoms. EMG 05/08/2012 showed polyneuropathy. No significant complaint today. Patient notes in the past that the chiropractor helped. Currently no problem." - B12, A1c as above - On my exam, she has intact light touch, though she reports the feet "feel numb." Proprioception difficult to test as she repeatedly flexed the toes d espite me asking her to relax her feet. However, seems largely intact. (5) Hyperlipidemia: Plan: - Hold home omega-3 supplement while in hospital; resume on discharge. (6) Hypothyroidism: Plan: TSH normal this admission. - Continue home Synthroid 75 mcg daily (7) Gastroesophageal reflux disease: Plan: - Continued PPI (8) DVT prophylaxis: Plan: Lovenox 40 mg SQ daily FULL CODE - Patient essentially refuses to choose code status. She replies "I don't know." and "That is a hard question." despite trying to ask in multiple ways and parsing out what it all involves. Did inform her that since she cannot really tell us, the de facto option is full code which she did protest. History of Present Illness Primary Care Provider: Jan Anthony MD 86yo F w/ hx of HTN Allergies Allergy/AdvReac Type Severity Reaction Status Date / Time indomethacin Allergy Unknown "HEAD FELT Verified 02/07/22 11:12 FUNNY" pseudoephedrine Allergy Unknown "HEAD FELT Verified 02/07/22 11:12 FUNNY" Home Medications Medication Instructions Recorded Confirmed Type flaxseed oil See Rx Instructions miscellaneous 12/20/18 01/02/22 Rx ONCE #1 btl aspirin 81 mg tablet 81 mg PO DAILY 04/30/19 02/07/22 History aflibercept 2 mg/0.05 mL intravitreal 05/04/19 02/07/22 History intravitreal solution for injection (Eylea) [place] Three Fish Oil Liquid 2,668 mg PO DAILY 04/06/20 02/07/22 History vit 1 cap PO BID 04/06/20 02/07/22 History C,E,zinc,Be-ywxiv-4-lutein-zeaxanthin 250 mg-2.5 mg-0.5 mg capsule amlodipine 5 mg tablet 5 mg PO DAILY #90 tabs 04/25/21 02/07/22 Rx omeprazole 20 mg capsule,delayed 20 mg PO DAILY #90 caps 07/03/21 02/07/22 Rx release lisinopril 40 mg tablet 40 mg PO DAILY #90 tabs 09/01/21 02/07/22 Rx levothyroxine 75 mcg tablet 75 mcg PO DAILY #90 tabs 12/29/21 02/07/22 Rx [place] Eye Drops ophthalmic (eye) 01/02/22 02/07/22 History eye lubricant combination no.1 2 drp ophthalmic (eye) 01/02/22 02/07/22 History %-0.9 %-1.8 % drops cholecalciferol (vitamin D3) 50 50 mcg PO DAILY 02/07/22 02/07/22 History mcg (2,000 unit) capsule cinacalcet 30 mg tablet 30 mg PO DAILY #90 tabs 02/07/22 02/07/22 Rx tumeric PO 02/07/22 History vit C 250 mg-E 90 mg-zinc 40 1 tab PO BID 02/07/22 02/07/22 History mg-copper 1 rk-gugdch-khfqhr chew tablet (PreserVision AREDS-2) Past Med/Surg History Medical History Gastroesophageal reflux disease Hyperlipidemia Hypertension Hypothyroidism Impaired fasting glucose Macular degeneration Mass of right breast Meningioma Osteopenia Primary hyperparathyroidism Surgical History History of brain surgery S/P breast biopsy, right S/P cataract surgery S/P cholecystectomy S/P hysterectomy S/P tonsillectomy and adenoidectomy Family History Father Diabetes Brother Diabetes Mother Breast cancer Sister Breast cancer Denies family history of Ovarian cancer Prostate cancer Myocardial infarction Colorectal cancer Social History Smoking Status: Never smoker Second Hand Exposure: No; Hx Alcohol Use: No Hx Substance Use: No Preferred Language: [place] Communication Ability: Effective Visual Impairment: No Limitations Hearing Ability: Use of Hearing Aid Jet Dyeing Machine Tender Required: No marital status: Current Living Situation: Spouse current occupational status: retired current occupation: used to work as meat service team member at [employer] Feels Safe at Home: Yes Childhood Exposure to Second-Hand Smoke: No caffeine: Yes during the past year weight has: remained stable Dental Care, Regularly: Yes Physical Activity Frequency: Daily Seatbelt Use: always Sunscreen Use: Yes Assistive Devices: Denture - Upper, Denture - Lower, Glasses and Hearing Aid - Bilateral Results & Data Results & Data ([facility]) Vital Signs (Past 12 Hours) Vital Signs Temp Pulse Pulse Resp BP BP Pulse Ox 03/16/22 09:27 73 16 175/89 H 99 03/16/22 08:40 95 03/16/22 07:27 70 16 199/80 H 95 03/16/22 07:27 03/16/22 07:30 36.6 C 74 20 199/80 H 98 O2 Del Method 03/16/22 09:27 03/16/22 08:40 Room Air 03/16/22 07:27 03/16/22 07:27 Room Air 03/16/22 07:30 Room Air Code Status & VTE Plan VTE Prophylaxis Plan VTE Prophylaxis will be ordered: Yes PG Care Time/CCT Total # of Minutes Spent Total Time Spent with Patient: Total time spent is greater than 50% in coordination of care (as documented) at patient's floor/unit and/or counseling patient: Coding Level of Care Code 98497 Initial Inpt Care Lvl 3 Diagnoses Fall W19.XXXA Hypertension I10 Primary hyperparathyroidism E21.0 Polyneuropathy G62.9 Hyperlipidemia E78.5 Hypothyroidism E03.9 Gastroesophageal reflux disease K21.9 DVT prophylaxis Z29.9
[2022-03-16] MEDS ORDERED: ACETAMINOPHEN 325 MG TAB PO PRN (14:57)
[2022-03-16] MEDS ORDERED: ONDANSETRON INJ 2 MG/ML 2 ML VIAL IV PRN (14:57)
[2022-03-17] MEDS: LEVOTHYROXINE SODIUM 75 MCG TABLET PO SCH (05:46)
[2022-03-17 07:46] LABS: Hemoglobin 12.1 g/dl (12.0-16.0); Mean Corpuscular Hemoglobin 30.5 pg (25.0-34.0); Mean Corpuscular Hgb Conc 32.7 g/dL (32.0-36.0); Mean Corpuscular Volume 93.2 fL (80.0-100.0); Mean Platelet Volume 10.7 fL (9.4-12.3); Platelet Count 234 K/uL (130-400); RDW Coefficient of Variation 13.7 % (11.5-14.5); Red Blood Count 3.97 M/uL (3.93-5.22); White Blood Count 9.04 K/ul (4.8-10.8)
[2022-03-17 08:05] LABS: Estimated Average Glucose 128 mg/dl; Hemoglobin A1C 6.1 % (4.5-5.6)
[2022-03-17 08:09] LABS: BUN Creatinine Ratio 18.4 (10-20); Calcium 9.4 mg/dl (8.5-10.1); Est GFR (African American) 82.9 ml/min; Est GFR (Non-African American) 71.5 ml/min; Potassium 4.3 mmol/L (3.5-5.1)
[2022-03-17] MEDS: amLODIPine BESYLATE 5 MG TAB PO SCH (08:17)
[2022-03-17] MEDS: lisinopril 40 MG TAB PO SCH (08:17)
[2022-03-17] MEDS: ENOXAPARIN INJ 40 MG/0.4 ML SYR SQ SCH (08:22)
[2022-03-17] MEDS ORDERED: CYANOCOBALAMIN 1000 MCG/ML VIAL IM SCH (14:30)
--- NOTE | 2022-03-17 14:37 | Hospitalist Progress Note ---
Date of Service March 17, 2022 Assessment & Plan (1) Fall: Plan: Pt is an 86 yo female with PMH macular degeneration, primary hyperparathyroidism, ADELE, IBS, and cranial meningioma presenting d/t multiple falls at home over the past week. Hx of multiple falls, most recent yesterday - weakness and numbness in BL legs without prodrome - Orthostatics in ER negative - B12 (280- low normal) and A1c (6.1%) ordered in ER - plan to replete B12 with inj x1 now, continue outpatient - MRI lumbar w/o contrast ordered to evaluate for nerve related etiologies - Lyme titers negative - PT consulted - Discussed home rehab, unsure if it will be necessary HTN - BPs running high (highest 199/80) - Continue home meds: amlodipine (5 mg) and lisinopril (40 mg) Hx of possible polyneuropathy - hx of many years on her feet for work, possible occupational neuropathy - no hx of DM - B12 low as noted above- will replete - MRI lumbar ordered- pending Primary hyperparathyroidism - Follows with Dr. Choudhury - Ca 9.4 today - no longer taking medication for this HLD - Hold home omega-3 supplement while in hospital - resume on d/c Hypothyroidism - TSH normal - Continue home Synthroid 75 mcg daily GERD - continue omeprazole 20 mg (2) Hypertension: (3) Primary hyperparathyroidism: (4) Polyneuropathy: (5) Hyperlipidemia: (6) Hypothyroidism: (7) Gastroesophageal reflux disease: Plan Diet: regular Fluids: none, B12 inj x1 DVT ppx: lovenox 40 mg SQ daily Code: Full Admission and Anticipated Discharge Date Admission Date: March 16, 2022 Supervising Physician Co-Signing Physician Notes I also saw the patient and confirmed mcdermott portions of the history and physical examination. I agree with the impression and plan as noted in the resident documentation. When the resident I saw the patient late morning, she was lying supine in bed. Her and son were both at bedside. All questions that they had were answered. Mica describes a approximately 1 to 2-month gradual progression of lower extremity numbness. On neurologic testing, she does not have any definitive lower extremity weakness; she describes more of a numbness and it sounds as if this is giving her difficulty with proprioception and thus balance. A few weeks ago, she thought she was going to have difficulty with her sciaticashe felt as if it was going to "act up." She did not have the pain that she usually has with her sciatica, but about the same time, she developed worsening issues with regards to ambulation, balance, and the lower extremity numbness. She is quite precise and that the numbness is both bilaterally, and only below the knees. She remembers "years ago" having an EMG on her lower extremities, although she cannot remember what exactly it was for and we could not find record of it in the EMR. Mica has had various jobs during her lifetime, mostly working in a grocery store -and most of work seems to have involved a lot of time on her feet. Exam 153/84, 71, 20, 36.6, 97% on room air Pleasant alert. No distress appreciated. Respirations are nonlabored Lower extremities without edema. Distal pulses are strong. Plantar and dorsiflexion are equal bilaterally, strong. Positive sensation on both the anterior and posterior surfaces of the foot, bilaterally, although she seems to struggle with two-point discrimination. Data CBC is unremarkable Sodium 139, potassium 4.3, BUN 14, creatinine 0.76 Hemoglobin A1c 6.1% Vitamin B12 203 TSH 1.493 Impression and plan Bilateral lower extremity neuropathy/radiculopathy Vitamin B12 deficiency Suspicion is that this is a mixed picture, neuropathy and perhaps an element of a radiculopathy. The etiology of neuropathy is probably multifactorial, occupational and B12 deficiency. PT/OT evaluations Replete B12; this can be continued periodically as an outpatient Check Lyme titers MRI lumbosacral spine to exclude significant spinal stenosis Hypertension Elevated blood pressures in the acute setting, but trending downward Continue to monitor; hold off on any med changes for the time being Additional per resident documentation Subjective Pt is an 86 yo female with PMH macular degeneration, primary hyperparathyroidism, ADELE, IBS, and cranial meningioma presenting d/t multiple falls at home over the past week. 03/17/2022: Pt explains that she has had a few falls over the past week. She feels that her legs become weak from her knees down in both legs. They are also numb. She has no prodrome with these falls, only the sensation of numbness and perceived weakness. Her most recent episode was yesterday morning when she fell forward onto her knees. She denies hitting her head or losing consciousness. She denies SOB, chest pain, dizziness, lightheadedness, syncope, headaches, and visual changes (other than her macular). She has a vague history of neuropathy; she explains that she had an EMG many years ago due to balance problems. She is not sure what that testing revealed. She would consider home PT at this point if it would be beneficial. Physical Exam Constitutional: NAD. BP running high. Highest 199/80. Eyes: no conjunctival abnormality Respiratory: CTA bilaterally. No rhonchi, wheezing, or rales. Non labored breathing. Cardiovascular: RRR. No murmur noted. No LL edema. Pedal pulses 2+. Musculoskeletal: 5/5 strength in bilateral LE. Light sensation intact, however, perception is that of a "numbness" Skin: no rashes, warm and dry Psychiatric: Alert. Mood and affect congruent. Results & Data Results & Data ([facility]) Vital Signs (Past 12 Hours) Vital Signs Temp Pulse Resp BP Pulse Ox O2 Del Method 03/17/22 08:06 36.6 C 71 20 153/84 H 97 Room Air Resident Activity Tracking Resident Involvement: Resident Care Provided Care Provided: Adult Hospital Medicine (1) Fall Encounter type: initial encounter Qualified Code(s): W19.XXXA - Unspecified fall, initial encounter
[2022-03-17 15:30] LABS: Lyme Ab IgG w/WB Rflx Negative (Negative); Lyme Ab IgM w/WB Rflx Negative (Negative)
--- NOTE | 2022-03-17 19:51 | Magnetic Resonance Report ---
MRI OF THE LUMBAR SPINE WITHOUT IV CONTRAST CLINICAL HISTORY: Generalized weakness. Lower extremity numbness. Recent fall. COMPARISON STUDY: No priors. TECHNIQUE: MRI of the lumbar spine is performed utilizing various T1 and T2 weighted sequence in the axial and sagittal planes. IV contrast was not administered for this examination. The examination is compromised by motion artifact. FINDINGS: Lumbar spine: Marrow signal intensity is heterogeneous. Vertebral body height and alignment are maint ained throughout the lumbar spine. Anterior and lateral marginal osteophytes are seen throughout. The transverse and spinous processes appear intact. There is no evidence of spondylolysis. Hemangiomas a re noted in the bodies of L4 and L5. No destructive bony lesion is seen. Chronic degenerative endplat e change is noted at most levels. There is significant endplate edema at L4-L5. Minimal endplate maricruz a is seen at L2-L3. Intervertebral discs: Degenerative disc desiccation and loss of height are seen throughout the lumbar spine. Loss of height is severe at L2-L3 and moderate at L1-L2 and L4-L5. Spinal cord: The visualized spinal cord is normal in morphology and signal intensity. The conus medul ash terminates at the L1-L2 interspace. The nerve roots of the cauda equina are normal in morpholog y and signal intensity. L1-L2: There is broad-based posterior disc bulge. This abuts the transiting nerve roots. No significa nt cord compromise of the central canal is identified. Left lateral disc bulge contributes to subarti cular stenosis. In conjunction with facet arthropathy, there is acqy-qu-adxilqoa left and mild right neural foraminal stenosis. L2-L3: There is a posterior disc osteophyte complex with annular fissure. This abuts the transiting n erve roots. In conjunction with hypertrophied ligamentum flavum, there is axfh-sc-tqgckukf central ca nal stenosis at this level with a minimum AP diameter of 7 mm. Lateral disc bulge contributes to bila teral subarticular stenosis. In conjunction with facet arthropathy, there is mild to moderate bilater al neuroforaminal stenosis. L3-L4: There is broad-based posterior disc bulge and annular fissure. This abuts the transiting nerve roots. In conjunction with hypertrophy of the ligamentum of flavum, there is moderate central canal stenosis with a minimum AP diameter of 6 mm. Lateral disc bulge is seen bilaterally, left greater sydnee n right. This continues to subarticular stenosis and impinging the exiting left L3 nerve root. In con junction with hypertrophy of the ligamentum flavum, there is moderate to severe left and moderate rig ht neural foraminal stenosis. L4-L5: There is broad-based posterior disc bulge. This abuts the transiting nerve roots. In conjuncti on with hypertrophy of the ligamentum flavum, there is severe central canal stenosis at this level wi th a minimum AP diameter of 4 mm. Large lateral disc bulges are seen bilaterally. This contributes to severe bilateral symmetrical reticular stenosis and impinging the exiting bilateral L4 nerve roots. In conjunction with facet arthropathy, there is severe bilateral neural foraminal stenosis at this le caitlin. L5-S1: There is broad-based posterior disc bulge and annular fissure. This abuts the transiting nerve roots. No significant acquired compromise of the central canal is identified at this level. There is mild bilateral subarticular stenosis. In conjunction with facet arthropathy, there is moderate to se devante left and ldww-hc-uzslnost right neural foraminal stenosis. Sacrum: The visualized sacrum is normal in morphology and signal intensity. Soft tissues: There is mild fatty atrophy of the paraspinous musculature. The retroperitoneal structu res are grossly unremarkable but incompletely assessed. No retroperitoneal lymphadenopathy is seen. IMPRESSION: 1. Lumbosacral spondylosis as above with multilevel acquired compromise of the central canal. This is severe at L4-L5. See discussion for detailed level by level analysis. 2. Degenerative disc disease as above with significant degenerative endplate edema at L4-L5. 3. No destructive bony lesion is seen. 4. Additional findings as above. Dictated: 03/17/2022 7:17 PM Transcribed: 03/17/2022 7:49 PM Leanna [id number] [facility] Electronically signed by: Sarath Zamarripa M.D. 03/17/2022 7:50 PM
[2022-03-18] MEDS: LEVOTHYROXINE SODIUM 75 MCG TABLET PO SCH (06:09)
[2022-03-18] MEDS: ENOXAPARIN INJ 40 MG/0.4 ML SYR SQ SCH (09:39)
[2022-03-18] MEDS: lisinopril 40 MG TAB PO SCH (09:39)
[2022-03-18] MEDS: amLODIPine BESYLATE 5 MG TAB PO SCH (09:40)
[2022-03-18 09:51] LABS: BUN Creatinine Ratio 19.8 (10-20); Calcium 9.8 mg/dl (8.5-10.1); Creatinine Clr Calc Pharmacy 48.6 ml/min; Est GFR (African American) 71.4 ml/min; Est GFR (Non-African American) 61.6 ml/min; Potassium 4.5 mmol/L (3.5-5.1)
--- NOTE | 2022-03-18 13:11 | Discharge Summary ---
Date of Service March 18, 2022 Admission HPI Per Admitting Provider This patient is an 86-year-old female who comes in after falling at 5:00 this morning she says "I just went down. She says she just felt weak all over. Was nonfocal but mostly in her legs bilaterally. She said she got up to go to the bathroom. She adamantly denies there was no syncope or symptoms prior to falling just feeling weak. She denies any injury she did not hit her head there is no headache or head trauma. No neck pain she denies that she has pain anywhere. No chest pain in any point or palpitations. no shortness of breath or pleurisy. No recent illness cough or fever or chills. No nausea vomiting or diarrhea. No blood or melena in her stool. No sick contacts. No urinary symptoms specifically no dysuria or hematuria. No difficulty speaking or swallowing. No change in vision acutely. She says her legs feel tingly in her feet but she gets that from time to time. She tells me she does have a history of parathyroid disease and was taken off of medications for this recently. She also has a history of meningiomas that been operated on in the past. Addendum: HPI missed on initial note: 86yo F w/ hx of HTN, primary hyperparathyroidism, and remote polyneuropathy who presents with falls at home. Patient reports several falls at home. She reports no prodrome prior to the falls to indicate a syncopal event. She essentially just gets weak in both legs and usually has time to try to lower herself or call for help. Today, her tried to help her, but she knocked him down as she went down. She did not strike her head or have any loss of consciousness. She crawled to the bed and called 911. In the ED, she wanted to be discharged, but when she stood up, she could only walk a few feet before starting to sink down again. Admission Exam Per Admitting Provider General: Well developed well nourished older female who appears in no acute distress, breathing comfortably on room air. Normal speech HEENT: Normal cephalic atraumatic. Pupils are equal round and reactive to light. Extraocular movements are intact. Oropharynx is pink with moist mucous membranes. No swelling of the mouth lips or tongue. Neck: Supple with a midline trachea. No meningeal signs or stiffness, no JVD or bruits. No Stridor. Chest: Clear to auscultation bilaterally. No wheezes or rhonchi. No increased work of breathing. Heart: Regular rate and rhythm without murmurs or gallops. Abdomen: Soft nontender, nondistended without rebound guarding or rigidity. Extremities: No cyanosis clubbing or edema. No calf tenderness or assymetry Spine/Back. Non tender to palpation. No CVA tenderness Skin: Good turgor without rashes. Neurologic exam: Cranial nerves two through 12 are intact. Motor and sensation are intact and symmetrical throughout. Finger to ose is intact. No pronator drift. Principal Diagnosis lumbar spondylosis, bilateral LE weakness with falls Discharge Exam Constitutional NAD, vitals WNL. Respiratory CTA bilaterally. No wheezing, rhonchi, or crackles. Non labored breathing. Chest (Breasts) Additional Comments: RRR. No murmur noted. Musculoskeletal 5/5 strength in BL lower extremities. Numb sensation mainly focused on medial aspects of both ankles. Discharge Data Allergies Allergy/AdvReac Type Severity Reaction Status Date / Time indomethacin Allergy Unknown "HEAD FELT Verified 03/16/22 15:12 FUNNY" pseudoephedrine Allergy Unknown "HEAD FELT Verified 03/16/22 15:12 FUNNY" Consultations 03/16/22 13:12 ED Decision to Admit Stat Ordered Studies Chest X-Ray 03/16/22 08:40 XR chest 1V portable HISTORY: Chest 11/01/2017. COMPARISON: None. FINDINGS: The cardiac silhouette remains mildly enlarged. Mild bibasilar interstitial thickening remains stable. This is likely chronic. No new focal lung consolidations to suggest pneumonia. No evidence for pulmonary edema. Stable mild elevation the right hemidiaphragm. Prior cholecystectomy. Calcifications within the aortic knob. No pneumothorax. No pleural effusions. IMPRESSION: No significant change compared to the prior study. No acute process. ACT 112: Negative or not required by law. Electronically signed by: Jarek Zepeda M.D. 03/16/2022 9:[address] 03/16/22 08:[address] DOSE: 638.56 mGycm HISTORY: weakness, hx of menigoma TECHNIQUE: Multiaxial CT images of the head were performed without the use of intravenous contrast. Automated exposure control was utilized for this study. A dose lowering technique was utilized adhering to the principles of ALARA. Comparison: Head CT 05/20/2009. Brain MRI 10/31/2018. Findings: Mild mucosal thickening within the left maxillary sinus. The remaining paranasal sinuses and mastoid air cells are clear. No acute calvarial fractures identified. Stable 2 cm left high convexity meningioma. Prior right frontal craniotomy with underlying encephalomalacia. This is also unchanged. There is no hematoma, midline shift, acute infarct. The ventricles are normal in size. Impression: 1. No acute intracranial abnormality. 2. Stable postoperative changes/encephalomalacia again noted within the right frontal lobe. 3. Stable 2 cm meningioma within the left high convexity. ACT 112: Negative or not required by law. Electronically signed by: Jarek Zepeda M.D. 03/16/2022 9:57 AM Lumbar Spine MRI 03/17/22 14:14 MRI OF THE LUMBAR SPINE WITHOUT IV CONTRAST CLINICAL HISTORY: Generalized weakness. Lower extremity numbness. Recent fall. COMPARISON STUDY: No priors. TECHNIQUE: MRI of the lumbar spine is performed utilizing various T1 and T2 weighted sequence in the axial and sagittal planes. IV contrast was not administered for this examination. The examination is compromised by motion artifact. FINDINGS: Lumbar spine: Marrow signal intensity is heterogeneous. Vertebral body height and alignment are maintained throughout the lumbar spine. Anterior and lateral marginal osteophytes are seen throughout. The transverse and spinous processes appear intact. There is no evidence of spondylolysis. Hemangiomas are noted in the bodies of L4 and L5. No destructive bony lesion is seen. Chronic degenerative endplate change is noted at most levels. There is significant endplate edema at L4-L5. Minimal endplate edema is seen at L2-L3. Intervertebral discs: Degenerative disc desiccation and loss of height are seen throughout the lumbar spine. Loss of height is severe at L2-L3 and moderate at L1-L2 and L4-L5. Spinal cord: The visualized spinal cord is normal in morphology and signal intensity. The conus medullaris terminates at the L1-L2 interspace. The nerve roots of the cauda equina are normal in morphology and signal intensity. L1-L2: There is broad-based posterior disc bulge. This abuts the transiting nerve roots. No significant cord compromise of the central canal is identified. Left lateral disc bulge contributes to subarticular stenosis. In conjunction with facet arthropathy, there is wwyx-va-dybnujoa left and mild right neural foraminal stenosis. L2-L3: There is a posterior disc osteophyte complex with annular fissure. This abuts the transiting nerve roots. In conjunction with hypertrophied ligamentum flavum, there is bdhn-wa-[id number] central canal stenosis at this level with a minimum AP diameter of 7 mm. Lateral disc bulge contributes to bilateral subarticular stenosis. In conjunction with facet arthropathy, there is mild to moderate bilateral neuroforaminal stenosis. L3-L4: There is broad-based posterior disc bulge and annular fissure. This abuts the transiting nerve roots. In conjunction with hypertrophy of the ligamentum of flavum, there is moderate central canal stenosis with a minimum AP diameter of 6 mm. Lateral disc bulge is seen bilaterally, left greater than right. This continues to subarticular stenosis and impinging the exiting left L3 nerve root. In conjunction with hypertrophy of the ligamentum flavum, there is moderate to severe left and moderate right neural foraminal stenosis. L4-L5: There is broad-based posterior disc bulge. This abuts the transiting nerve roots. In conjunction with hypertrophy of the ligamentum flavum, there is severe central canal stenosis at this level with a minimum AP diameter of 4 mm. Large lateral disc bulges are seen bilaterally. This contributes to severe bilateral symmetrical reticular stenosis and impinging the exiting bilateral L4 nerve roots. In conjunction with facet arthropathy, there is severe bilateral neural foraminal stenosis at this level. L5-S1: There is broad-based posterior disc bulge and annular fissure. This abuts the transiting nerve roots. No significant acquired compromise of the central canal is identified at this level. There is mild bilateral subarticular stenosis. In conjunction with facet arthropathy, there is moderate to severe left and yyev-cd-eswieimn right neural foraminal stenosis. Sacrum: The visualized sacrum is normal in morphology and signal intensity. Soft tissues: There is mild fatty atrophy of the paraspinous musculature. The retroperitoneal structures are grossly unremarkable but incompletely assessed. No retroperitoneal lymphadenopathy is seen. IMPRESSION: 1. Lumbosacral spondylosis as above with multilevel acquired compromise of the central canal. This is severe at L4-L5. See discussion for detailed level by level analysis. 2. Degenerative disc disease as above with significant degenerative endplate edema at L4-L5. 3. No destructive bony lesion is seen. 4. Additional findings as above. Dictated: 03/17/2022 7:17 PM Transcribed: 03/17/2022 7:49 PM Leanna [id number] [email or web address] Electronically signed by: Sarath Zamarripa M.D. 03/17/2022 7:50 PM Hospital Course (1) Fall: Pt is an 86 yo female with PMH macular degeneration, primary hyperparathyroidism, ADELE, IBS, and cranial meningioma presenting d/t multiple falls at home over the past week. Hx of multiple falls, most recent 03/16 - weakness and numbness in BL legs without prodrome - Orthostatics in ER negative - B12 (280- low normal) and A1c (6.1%) ordered in ER - repletion started with B12 inj x1 inpatient, continue outpatient - MRI lumbar w/o contrast showed significant lumbar spondylosis with nerve compression - Lyme titers negative - PT recommended home PT services - ordered home rollator HTN - BPs running high (highest 199/80) - Continued home meds with no changes: amlodipine (5 mg) and lisinopril (40 mg) Hx of possible polyneuropathy - hx of many years on her feet for work, possible occupational neuropathy - no hx of DM - B12 low as noted above- repletion began - MRI as above Primary hyperparathyroidism - Follows with Dr. Choudhury - Ca 9.4 today - no longer taking medication for this HLD - Hold home omega-3 supplement while in hospital - resume on d/c Hypothyroidism - TSH normal - Continue home Synthroid 75 mcg daily GERD - continue omeprazole 20 mg (2) Hypertension: (3) Primary hyperparathyroidism: (4) Polyneuropathy: (5) Hyperlipidemia: (6) Hypothyroidism: (7) Gastroesophageal reflux disease: (8) Lumbar spondylosis: Plan Diet: regular Fluids: none, B12 inj x1 Code: Full Total Time Total Time Spent Total Time Spent (In Minutes): As per attending attestation Discharge Plan Discharge Items Patient Disposition: Home - Home Health Services Reason For Visit: weakness Discharge Diagnosis: Lumbar spondylosis, bilateral leg weakness causing falls Activity: As commented below Activity Comment: Ambulate as you are able with a walker or assistive device Non-emergency contact: Primary Care Provider Call non-emergency contact if: you have any medication questions and your symptoms worsen Follow-up/Referrals: Jan Anthony MD [Primary Care Provider] - Diet: Regular Addtl Attending Provider Instructions: You were admitted to the hospital for weakness in both of your legs causing you to fall. You were evaluated with multiple blood tests which revealed a low vitamin B12 level. You were given one B12 injection while in the hospital. You also had a MRI of your lower back which revealed nerve compression as multiple levels, most severe at L4-L5. This nerve compression, along with a component of neuropathy and low vitamin B12, most likely contributed to your symptoms. A discharge summary will be sent to your primary care physician to ensure continuity of care. Please bring this discharge summary with you to your next office appointment so that your provider can review it at that time. Medications: Your medication list has been reviewed and reconciled upon discharge to ensure accuracy and continuity of care. An updated list of all your medications is included with your hospital discharge paperwork. Please review this list closely and make note of any changes to your medications. - Ask your PCP about receiving vitamin B12 injections. You received one while in the hospital. - No medication changes were made to your home medications. Please continue them as before you came to the hospital. - You were sent home with a paper script for a rollator walker. Take this to any pharmacy/store that has durable medical equipment (DME). Follow up appointments: - Make a follow up appointment with your PCP within the next week. It is very important that you follow up with them shortly after discharge from the [facility]. - You should discuss your falls and recent MRI with your PCP in addition to the vitamin B12. - Continue with physical therapy at your home to build strength and coordination CONTACT YOUR PRIMARY CARE PROVIDER if you experience any of the following: - Continuation of symptoms despite receiving adequate treatment - Difficulty following your treatment plan - Difficulty taking any of your medications CALL 911 OR GO TO THE EMERGENCY DEPARTMENT if you experience any of the following: - Any further falls, especially if you hit your head - Worsening/increasing frequency of your symptoms - Significant changes in your symptoms like losing consciousness or losing continence during these episodes - Sudden, severe abdominal pain or nausea/vomiting - Severe chest pain or chest pain that radiates to your jaw or arm - Sudden, severe shortness of breath or difficulty breathing Pending Studies at Discharge: No Studies:: MRI OF THE LUMBAR SPINE WITHOUT IV CONTRAST CLINICAL HISTORY: Generalized weakness. Lower extremity numbness. Recent fall. COMPARISON STUDY: No priors. TECHNIQUE: MRI of the lumbar spine is performed utilizing various T1 and T2 weighted sequence in the axial and sagittal planes. IV contrast was not administered for this examination. The examination is compromised by motion artifact. FINDINGS: Lumbar spine: Marrow signal intensity is heterogeneous. Vertebral body height and alignment are maintained throughout the lumbar spine. Anterior and lateral marginal osteophytes are seen throughout. The transverse and spinous processes appear intact. There is no evidence of spondylolysis. Hemangiomas are noted in the bodies of L4 and L5. No destructive bony lesion is seen. Chronic degenerative endplate change is noted at most levels. There is significant endplate edema at L4-L5. Minimal endplate edema is seen at L2-L3. Intervertebral discs: Degenerative disc desiccation and loss of height are seen throughout the lumbar spine. Loss of height is severe at L2-L3 and moderate at L1-L2 and L4-L5. Spinal cord: The visualized spinal cord is normal in morphology and signal intensity. The conus medullaris terminates at the L1-L2 interspace. The nerve roots of the cauda equina are normal in morphology and signal intensity. L1-L2: There is broad-based posterior disc bulge. This abuts the transiting nerve roots. No significant cord compromise of the central canal is identified. Left lateral disc bulge contributes to subarticular stenosis. In conjunction with facet arthropathy, there is dbnk-uh-wdnmmtgw left and mild right neural foraminal stenosis. L2-L3: There is a posterior disc osteophyte complex with annular fissure. This abuts the transiting nerve roots. In conjunction with hypertrophied ligamentum flavum, there is zbvx-qt-gritbitx central canal stenosis at this level with a minimum AP diameter of 7 mm. Lateral disc bulge contributes to bilateral subarticular stenosis. In conjunction with facet arthropathy, there is mild to moderate bilateral neuroforaminal stenosis. L3-L4: There is broad-based posterior disc bulge and annular fissure. This abuts the transiting nerve roots. In conjunction with hypertrophy of the ligamentum of flavum, there is moderate central canal stenosis with a minimum AP diameter of 6 mm. Lateral disc bulge is seen bilaterally, left greater than right. This continues to subarticular stenosis and impinging the exiting left L3 nerve root. In conjunction with hypertrophy of the ligamentum flavum, there is moderate to severe left and moderate right neural foraminal stenosis. L4-L5: There is broad-based posterior disc bulge. This abuts the transiting nerve roots. In conjunction with hypertrophy of the ligamentum flavum, there is severe central canal stenosis at this level with a minimum AP diameter of 4 mm. Large lateral disc bulges are seen bilaterally. This contributes to severe bilateral symmetrical reticular stenosis and impinging the exiting bilateral L4 nerve roots. In conjunction with facet arthropathy, there is severe bilateral neural foraminal stenosis at this level. L5-S1: There is broad-based posterior disc bulge and annular fissure. This abuts the transiting nerve roots. No significant acquired compromise of the central canal is identified at this level. There is mild bilateral subarticular stenosis. In conjunction with facet arthropathy, there is moderate to severe left and kgpt-fo-nlbsqnsr right neural foraminal stenosis. Sacrum: The visualized sacrum is normal in morphology and signal intensity. Soft tissues: There is mild fatty atrophy of the paraspinous musculature. The retroperitoneal structures are grossly unremarkable but incompletely assessed. No retroperitoneal lymphadenopathy is seen. IMPRESSION: 1. Lumbosacral spondylosis as above with multilevel acquired compromise of the central canal. This is severe at L4-L5. See discussion for detailed level by level analysis. 2. Degenerative disc disease as above with significant degenerative endplate edema at L4-L5. 3. No destructive bony lesion is seen. 4. Additional findings as above. Stand-Alone Forms: [facility] Medications and DC Order Prescriptions: Continued amlodipine 5 mg tablet 5 mg PO DAILY Qty: 90 3RF omeprazole 20 mg capsule,delayed release(DR/EC) 20 mg PO DAILY Qty: 90 3RF lisinopril 40 mg tablet 40 mg PO DAILY Qty: 90 3RF levothyroxine 75 mcg tablet 75 mcg PO DAILY Qty: 90 3RF [place] Three Fish Oil Liquid 2,668 mg PO DAILY eye lubricant combination no.1 2-0.9-1.8 % drops 1 drp ophthalmic (eye) TID [place] Eye Drops 1 drp ophthalmic (eye) DIRECTED PRN (Reason: Dry Eyes) cholecalciferol (vitamin D3) 50 mcg (2,000 unit) capsule 50 mcg PO DAILY PreserVision AREDS-2 250-90-40-1 mg tablet,chewable 1 tab PO BID Eylea 2 mg/0.05 mL solution 0 mg INT VIT .Q 10 WEEKS aspirin 81 mg Tablet,Delayed Release (Dr/Ec) 81 mg PO DAILY turmeric 400 mg Capsule 0 mg PO DAILY acetaminophen [Tylenol] 325 mg Tablet 325 mg PO QID PRN (Reason: Pain) cetirizine [Zyrtec] 10 mg Tablet 10 mg PO DAILY PRN (Reason: ALLERGIES) Discharge Orders: Discharge Order (Routine); Ordered 03/18/22 Ordered By: Prema Crowe Admission Data Admit Date/Time: 03/16/22 13:49 Attending Provider: Mariano Sutherland Admit Provider: Sreekanth Whitney Primary Care Provider: Jan Anthony Other Providers: Sreekanth Whitney ; Ty Lowe [facility] Other Interventions: Discharge Summary Assessment (RN) Last Done: 03/18/22 14:04 Supervising Physician Co-Signing Physician Notes I also saw the patient and confirmed mcdermott portions of the history and physical examination. I agree with the impression and plan as noted in the resident documentation. Reviewed the results of the MRI with the patient. She is really not interested in any surgery for this. I did recommend that she reviews the results with her PCP as well. We discussed that her symptoms are probably combination of lumbar radiculopathy and a lower extremity neuropathy. The neuropathy could be in part due to vitamin B12 deficiency; she did get one B12 injection here in the hospital, and would recommend continue as an outpatient - did discuss with the patient that while this may be of some benefit, certainly not a panacea for all of her problems. Exam 153/84, 71, 20, 36.6, 97% on room air Pleasant alert. No distress appreciated. Respirations are nonlabored Lower extremities without edema. Distal pulses are strong. Plantar and dorsiflexion are equal bilaterally, strong. Positive sensation on both the anterior and posterior surfaces of the foot, bilaterally, although she seems to struggle with two-point discrimination. Data CBC is unremarkable Sodium 138, potassium 4.5, BUN 17, creatinine 0.86. Hemoglobin A1c 6.1% Vitamin B12 203 TSH 1.493 MRI of the LS spine shows degenerative disc disease with significant degenerative endplate edema at L4-L5. L4-L5 also has a broad-based posterior disc bulge which abuts the nerve roots, resulting in severe central canal stenosis. Impression and plan Bilateral lower extremity neuropathy/radiculopathy Vitamin B12 deficiency Suspicion is that this is a mixed picture, neuropathy and radiculopathy. The etiology of neuropathy is probably multifactorial, occupational and B12 deficiency. PT/OT evaluations completed, recommend home physical therapy Replete B12; this can be continued periodically as an outpatient Patient defers surgical evaluation at present; if she would to develop more profound lower extremity weakness, may need evaluation by surgery Prescription for wheeled walker with seat Hypertension Elevated blood pressures in the acute setting, but trending downward Continue to monitor; hold off on any med changes for the time being Additional per resident documentation
== END 2022-03-18 15:21 | disposition home health service (06) ==
LOC: ED 07:21 → SUATTDRO 13:49 → EDINP 13:49 → INTOOBSV 13:49 → 3N 14:58